=== PATIENT | male | born 1980 | race Two or more races ===

== ENCOUNTER 2018-03-13 14:43 | Emergency (ER) | payer OTHER ==
[~2018-03-13] VITALS: Ht 170.2 cm; Wt 113.4 kg
[2018-03-13] MEDS ORDERED: MUCINEX1200 MG PO (18:16)
== END 2018-03-13 18:38 | disposition home or self-care (01) ==
LOC: ER 14:43
DX: B34.9 Viral infection, unspecified (principal); J11.1 Influenza due to unidentified influenza virus with other respiratory manifestations